=== PATIENT | male | born 1940 | race Caucasian/White ===

== ENCOUNTER 2017-03-28 04:15 | Inpatient (IN) | payer MEDICARE ==
[2017-03-28 03:55] VITALS: O2SAT 0
[~2017-03-28 04:15] MED LIST: AMLO10TA2 PO; ASPI325T PO; BACT800T5 PO; FLUO10TA PO; LANTUS2P SQ; LISI-519 PO; MELA5TAB15 PO; METO25TA3 PO; NOVOLOGP2 SQ; RENACAP2 PO; SENN8.6T88 PO; SEVEL800 PO; TORS100T2 PO; ULOR40TA PO; ZOCO40TA PO
[2017-03-28 04:23] LABS: BLOOD GAS BASE EXCESS -12.9 mmol/L (-2-2); BLOOD GAS CARBOXYHEMOGLOBIN 0.3 % (0-4); BLOOD GAS HCO3 15 mmol/L (22-26); BLOOD GAS METHEMOGLOBIN 1.2 % (0-2); BLOOD GAS O2 HGB SATURATION 97 % (90-100); BLOOD GAS OXYGEN CONTENT 14.4 Vol % (12.0-20.0); BLOOD GAS PCO2 49 mmHg (38-42); BLOOD GAS PO2 211 mmHg (61-120); BLOOD GAS TOTAL HGB 10.2 G/DL (12.0-16.0); TEMP CORR TO 98.6
[2017-03-28 04:24] LABS: DRAW SITE RT BRACHIAL; FIO2 100 %; LITER FLOW 15 L/M; NUMBER OF ARTERIAL PUNCTURES 1; OXYGEN DEVICE AMBU; STAT YES; ULNAR PULSE PRESENT
[2017-03-28] MEDS ORDERED: SODIUM CHLOR 0.9% 1000 ML INJ 1,000 ML IV SCH (04:40)
[2017-03-28] MEDS ORDERED: MAGNESIUM HYDROXIDE SUSP 30 ML CUP PO PRN (04:45)
[2017-03-28] MEDS ORDERED: LACTULOSE SYRUP 20 GM/30 ML CUP PO PRN (04:45)
[2017-03-28] MEDS ORDERED: RESP: ALBUTEROL 2.5 MG/IPRATROPIUM 0.5 MG NEB (PRN) INH (04:45)
[2017-03-28] MEDS ORDERED: ACETAMINOPHEN 325 MG TAB PO PRN (04:45)
[2017-03-28] MEDS ORDERED: CHLORHEXIDINE GLUCONATE 2 % 1 PACK (2 CLOTHS) TOP PRN (04:45)
[2017-03-28] MEDS ORDERED: MISCELLANEOUS NURSING INFORMATION XX SCH (04:45)
[2017-03-28] MEDS ORDERED: SENNOSIDES 8.6 MG TAB PO PRN (04:45)
[2017-03-28] MEDS ORDERED: ONDANSETRON HCL 4 MG/2 ML VIAL IV PRN (04:45)
[2017-03-28] MEDS ORDERED: BISACODYL 10 MG SUPP RECTAL PRN (04:45)
[2017-03-28] MEDS ORDERED: SODIUM BICARBONATE 8.4% INJ 50 MEQ/50 ML SYR IV ONE (04:59)
[2017-03-28] MEDS ORDERED: EPINEPHrine HCL (1:10,000) 1 MG/10 ML SYRINGE IV ONE (04:59)
[2017-03-28] MEDS ORDERED: HEPARIN SODIUM - SQ 10,000 UNITS/ML VIAL SQ SCH (05:00)
[2017-03-28 05:06] LABS: APTT (PATIENT) 28.9 SEC (24.3-30.1); AUTOMATED NEUTROPHIL # 20.2 TH/MM3 (1.8-7.7); BASOPHIL # 0.1 TH/MM3 (0-0.2); BASOPHIL % 0.2 % (0.0-2.0); EOSINOPHIL # 0.1 TH/MM3 (0-0.4); EOSINOPHIL % 0.3 % (0.0-4.0); HEMATOCRIT 33.6 % (39.0-51.0); INTERNATIONAL NORMALIZED RATIO 1.2 RATIO; LYMPH % 16.8 % (9.0-44.0); LYMPHOCYTE # 4.3 TH/MM3 (1.0-4.8); MEAN CELL VOLUME 95.4 FL (80.0-100.0); MEAN CORPUSCULAR HEMOGLOBIN 28.6 PG (27.0-34.0); MONO % 2.6 % (0.0-8.0); NEUT % 80.1 % (16.0-70.0); PLATELET COUNT 256 TH/MM3 (150-450); PROTHROMBIN TIME - PATIENT 12.8 SEC (9.8-11.6); RED BLOOD COUNT 3.52 MIL/MM3 (4.50-5.90); RED CELL DISTRIBUTION WIDTH 15.3 % (11.6-17.2); WHITE BLOOD COUNT 25.3 TH/MM3 (4.0-11.0)
--- NOTE | 2017-03-28 05:09 | HHI.HP ---
HPI Service Critical Care Medicine Primary Care Physician No Primary Care Physician Admission Diagnosis Cardiac Arrest Diagnosis: Chief Complaint: Cardiac Arrest Travel History International Travel<30 Days: No Contact w/Intl Traveler <30 Da: No Traveled to Known Affected Are: No History of Present Illness This is a 76 year old male with past medical history of CVA, HTN, HLD, ESRD HD failed transplant, cdiff with megacolon, malnutrition, DM and newly legally blind post CVA. Patient evaluated sitting in wheelchair with at bedside. Patient only able to provide limited information, noted to be drowsy only able to answer yes or no questions therefore information gathered from patient, and reviewed of prior charting. Patient was found at dialysis unresponsive with left side weakness. He was last seen normal at 0630 that morning 03/18/17. He was presented to [facility]. He was evaluated by Dr. Reeder via telemedicine and transferred to [place]. At [place] his NIHSS was 7 with right gaze deviation, he was moving all extremities against gravity, but could not speak as he was intubated. MRI (03/19/17)- showed bilateral cerebellar, occipital, hippocampal infarcts with cerebellar L>R, Occipital R>L, nonhemorrhagic infarcts infarcts are comparable with posterior circulation thrombolic embolic disease. Bilateral hippocampal acute infarcts, tiny right anterior thalamic and right periaqueductal midbrain acute infarcts were also depicted. Lateral right temporal parietal meningioma CT head 03/21/2017 showed expected interval evolution of the previously demonstrated multifocal acute infarctions within the posterior circulation, including bilateral occipital and cerebral infarcts. Infarcts within the medial aspect of the temporal lobes have also progressed. Echo done shows ef 75%. No vegetations, EEG negative for seizures and keppra stopped on 03/19/17 He was started on his home dose nifedipine, statin. He was seen by neurosurgery Dr. Pizarro and no surgical intervention was needed. Cardiology consulted - Dr. Mar for SVT ON hd 03/21 also found to have 1st degree av block and 13 beat run of vtach. K, phos, mag were adequate. Recommended low dose metoprolol. They did mention hemorrhagic conversion of cva , but I do not see CT report confirming. CT 03/21 read as expected evolution. Recommended no anticoagulation for 2 weeks post cva about 04/01/17. Patient has been admitted to [facility] for comprehensive rehabilitation evaluation and treatment 03/25/18. We have been consulted to assist in management post stroke. Patient appears to be drowsy but in no acute distress. Patient denies shortness of breath chest pain nausea vomiting diarrhea constipation fevers or chills. Patient was found in his room at [facility] on the floor by the bed without a pulse. CPR started and initial rhythm asystole. Full ACLS started. Perfusing rhythm restored briefly and patient transported to [facility]. He developed asystole again in [facility] and code continued. Unable to restore a perfusing rhythm for longer than 5 minutes despite aggressive medical support. See code sheet. Pronounced of cardiac standstill at 0500 hours after 50 minutes of ACLS protocol cpr. Review of Systems ROS Unable to obtain. Obtunded. Past Family Social History Allergies: Coded Allergies: acetaminophen (Verified Allergy, Intermediate, 03/25/17) Past Medical History ROS - General Review of Systems ROS Limitations: Poor Historian PFS Past Family Social History Allergies: Coded Allergies: acetaminophen (Verified Allergy, Intermediate, 03/25/17) Past Medical History HTN, HLD, ESRD HD failed transplant, cdiff with megacolon, malnutrition, DM and newly legally blind post CVA 03/18/17 Past Surgical History Cholecystomy, bilateral nephrectomy and failed renal transplant, incisional hernia repair Reported Medications Torsemide 100 Mg Tab 100 Mg PO DAILY Bactrim DS (Sulfamethoxazole-Trimethoprim) 800-160 Mg Tab 1 Tab PO BID Zocor (Simvastatin) 40 Mg Tab 40 Mg PO HS Renvela (Sevelamer Carbonate) 800 Mg Tab 1,600 Mg PO TIDAC Renal Vitamin (B-Complex W/ C & Folic Acid) 1 Cap 1 Cap PO DAILY If on dialysis, take after treatment. Metoprolol Tartrate 25 Mg Tab 25 Mg PO BID Melatonin 5 Mg Tab 6 Mg PO HS Lisinopril 5 Mg Tab 5 Mg PO DAILY Lantus Inj (Insulin Glargine) 1,000 Unit/10 Ml Vial 28 Units SQ DAILY Novolog Inj (Insulin Aspart) 1,000 Unit/10 Ml Vial 1 Units SQ ACHS SLIDING SCALE Uloric (Febuxostat) 40 Mg Tab 1 Tab PO DAILY Senna-Docusate Sodium Tablet (Sennosides/Docusate Sodium) 1 Each Tablet 1 Cap PO DAILY PRN Aspirin 325 Mg Tab 325 Mg PO HS Amlodipine (Amlodipine Besylate) 10 Mg Tab 10 Mg PO DAILY Fluoxetine (Fluoxetine HCl) 10 Mg Tab 10 Mg PO DAILY Physical Exam Physical Exam P 43, SBP 00/00, R 16 on vent, Sats 78% Head: Atraumatic. Neck: Orally intubated. Lungs: Diffuse rhonchi, mobile secretions. Heart: Irreg Irreg Abdomen: Mildly distended, quiet. Extremities: Mottled Neuro: No reflexes, no gag, no cough. Pupils 2 mm, unresponsive. No spontaneous respirations. Laboratory Laboratory Tests Test 03/28/17 04:15 Blood Gas Puncture Site RT BRACHIAL Blood Gas Patient Temperature 98.6 Blood Gas HCO3 15 Blood Gas Base Excess -12.9 Blood Gas Oxygen Saturation 97 Arterial Blood pH 7.11 Arterial Blood Partial 49 Pressure CO2 Arterial Blood Partial 211 Pressure O2 Arterial Blood Oxygen Content 14.4 Arterial Blood 0.3 Carboxyhemoglobin Arterial Blood Methemoglobin 1.2 Blood Gas Hemoglobin 10.2 Oxygen Delivery Device AMBU Blood Gas Liter Flow 15 Blood Gas Inspired Oxygen 100 Date/Time Procedure Status Source Growth 03/28/17 04:30 Aerobic Blood Culture Received Blood Peripheral Pending 03/28/17 04:30 Anaerobic Blood Culture Received Blood Peripheral Pending Imaging CXR: ET tube good position. Ornelas clear. Assessment and Plan Assessment and Plan Assessment: 1. Cardiac arrest. 2. Respiratory Failure. 3. Metabolic Acidosis. 4. ESRD. 5. S/P CVA Plan: Patient has developed asystole and was unable to be resuscitated. Pronounced at 0500 hours by Romaine Lyle M.D. after about 50 minutes of ACLS protocol. notified in IMC. Shakeel Lyle MD Mar 28, 2017 05:09
--- NOTE | 2017-03-28 05:10 | DEATH SUM ---
Summary Demographics Date Pronounced : Mar 28, 2017 Time Of : 05:00 Preliminary Cause of : Cardiac arrest Shakeel Lyle MD Mar 28, 2017 05:10
[2017-03-28 05:11] LABS: ALKALINE PHOSPHATASE 104 U/L (45-117); ALT (GPT) 199 U/L (12-78); ANION GAP 32 MEQ/L (5-15); AST (GOT) 244 U/L (15-37); BICARBONATE 20.3 MEQ/L (21.0-32.0); BLOOD UREA NITROGEN 61 MG/DL (7-18); CHLORIDE 93 MEQ/L (98-107); GLOMERULAR FILTRATION RATE 9 ML/MIN (>89); POTASSIUM 3.6 MEQ/L (3.5-5.1); SODIUM (NA) 145 MEQ/L (136-145); TOTAL BILIRUBIN ADULT 0.2 MG/DL (0.2-1.0)
--- NOTE | 2017-03-28 05:13 | HHI.DS ---
Discharge Summary Admission Date Mar 28, 2017 at 04:15 Discharge Date: Mar 28, 2017 Admitting Diagnosis Cardiac Arrest Procedures Orotracheal intubation. CPR. Brief History This is a 76 year old male with past medical history of CVA, HTN, HLD, ESRD HD failed transplant, cdiff with megacolon, malnutrition, DM and newly legally blind post CVA. Patient evaluated sitting in wheelchair with at bedside. Patient only able to provide limited information, noted to be drowsy only able to answer yes or no questions therefore information gathered from patient, and reviewed of prior charting. Patient was found at dialysis unresponsive with left side weakness. He was last seen normal at 0630 that morning 03/18/17. He was presented to [facility]. He was evaluated by Dr. Reeder via telemedicine and transferred to [place]. At [place] his NIHSS was 7 with right gaze deviation, he was moving all extremities against gravity, but could not speak as he was intubated. MRI (03/19/17)- showed bilateral cerebellar, occipital, hippocampal infarcts with cerebellar L>R, Occipital R>L, nonhemorrhagic infarcts infarcts are comparable with posterior circulation thrombolic embolic disease. Bilateral hippocampal acute infarcts, tiny right anterior thalamic and right periaqueductal midbrain acute infarcts were also depicted. Lateral right temporal parietal meningioma CT head 03/21/2017 showed expected interval evolution of the previously demonstrated multifocal acute infarctions within the posterior circulation, including bilateral occipital and cerebral infarcts. Infarcts within the medial aspect of the temporal lobes have also progressed. Echo done shows ef 75%. No vegetations, EEG negative for seizures and keppra stopped on 03/19/17 He was started on his home dose nifedipine, statin. He was seen by neurosurgery Dr. Pizarro and no surgical intervention was needed. Cardiology consulted - Dr. Mar for SVT ON hd 03/21 also found to have 1st degree av block and 13 beat run of vtach. K, phos, mag were adequate. Recommended low dose metoprolol. They did mention hemorrhagic conversion of cva , but I do not see CT report confirming. CT 03/21 read as expected evolution. Recommended no anticoagulation for 2 weeks post cva about 04/01/17. Patient has been admitted to [facility] for comprehensive rehabilitation evaluation and treatment 03/25/18. We have been consulted to assist in management post stroke. Patient appears to be drowsy but in no acute distress. Patient denies shortness of breath chest pain nausea vomiting diarrhea constipation fevers or chills. [facility] on [facility] floor by the bed without a pulse. CPR started and initial rhythm asystole. Full ACLS started. Perfusing rhythm restored briefly and patient transported to [facility]. He developed asystole again in [facility] and code continued. Unable to restore a perfusing rhythm for longer than 5 minutes despite aggressive medical support. See code sheet. Pronounced of cardiac standstill at 0500 hours after 50 minutes of ACLS protocol cpr. Significant Findings Laboratory Tests Test 03/28/17 03/28/17 04:15 04:30 Blood Gas HCO3 15 mmol/L (22-26) Blood Gas Base Excess -12.9 mmol/L (-2-2) Arterial Blood pH 7.11 (7.380-7.420) Arterial Blood Partial 49 mmHg (38-42) Pressure CO2 Arterial Blood Partial 211 mmHg Pressure O2 (61-120) Blood Gas Hemoglobin 10.2 G/DL (12.0-16.0) Prothrombin Time 12.8 SEC (9.8-11.6) Imaging CXR: ET tube in good position, lung hernandez well expanded. PE at Discharge . Hospital Course This is a 76 year old male with past medical history of CVA, HTN, HLD, ESRD HD failed transplant, cdiff with megacolon, malnutrition, DM and newly legally blind post CVA. Patient evaluated sitting in wheelchair with at bedside. Patient only able to provide limited information, noted to be drowsy only able to answer yes or no questions therefore information gathered from patient, and reviewed of prior charting. Patient was found at dialysis unresponsive with left side weakness. He was last seen normal at 0630 that morning 03/18/17. He was presented to [facility]. He was evaluated by Dr. Reeder via telemedicine and transferred to [place]. At [place] his NIHSS was 7 with right gaze deviation, he was moving all extremities against gravity, but could not speak as he was intubated. MRI (03/19/17)- showed bilateral cerebellar, occipital, hippocampal infarcts with cerebellar L>R, Occipital R>L, nonhemorrhagic infarcts infarcts are comparable with posterior circulation thrombolic embolic disease. Bilateral hippocampal acute infarcts, tiny right anterior thalamic and right periaqueductal midbrain acute infarcts were also depicted. Lateral right temporal parietal meningioma CT head 03/21/2017 showed expected interval evolution of the previously demonstrated multifocal acute infarctions within the posterior circulation, including bilateral occipital and cerebral infarcts. Infarcts within the medial aspect of the temporal lobes have also progressed. Echo done shows ef 75%. No vegetations, EEG negative for seizures and keppra stopped on 03/19/17 He was started on his home dose nifedipine, statin. He was seen by neurosurgery Dr. Pizarro and no surgical intervention was needed. Cardiology consulted - Dr. Mar for SVT ON hd 03/21 also found to have 1st degree av block and 13 beat run of vtach. K, phos, mag were adequate. Recommended low dose metoprolol. They did mention hemorrhagic conversion of cva , but I do not see CT report confirming. CT 03/21 read as expected evolution. Recommended no anticoagulation for 2 weeks post cva about 04/01/17. Patient has been admitted to [facility] for comprehensive rehabilitation evaluation and treatment 03/25/18. We have been consulted to assist in management post stroke. Patient appears to be drowsy but in no acute distress. Patient denies shortness of breath chest pain nausea vomiting diarrhea constipation fevers or chills. Patient was found in his room at [facility] on the floor by the bed without a pulse. CPR started and initial rhythm asystole. Full ACLS started. Perfusing rhythm restored briefly and patient transported to [facility]. He developed asystole again in IM and code continued. Unable to restore a perfusing rhythm for longer than 5 minutes despite aggressive medical support. See code sheet. Pronounced of cardiac standstill at 0500 hours after 50 minutes of ACLS protocol cpr. Pt Condition on Discharge: Deteriorating Shakeel Lyle MD Mar 28, 2017 05:13
[2017-03-28 05:19] LABS: HEMO FLAGS AUTO DIFF
[2017-03-28 05:32] LABS: BANDS 1 % (0-6); CORRECTED NUCLEATED RBC 3 /100 WBC (0-0); MYELOCYTES 2 % (0-0); NEUTROPHIL # MANUAL DIFF 21.3 TH/MM3 (1.8-7.7); PLATELET ESTIMATE SMEAR NORMAL (NORMAL); PLATELET MORPHOLOGY NORMAL (NORMAL); POLYS (SEG NEUTROPHILS) 81 % (16-70); SCAN/DIFF FINAL DIFF MANUAL; WBC DIFF SAMPLE 100
[2017-03-28 06:37] LABS: LACTIC ACID GHOST NOT REPORTABLE
[2017-03-28] MEDS ORDERED: PANTOPRAZOLE SODIUM 40 MG VIAL IV SCH (09:00)
[2017-03-28] MEDS ORDERED: DOCUSATE SODIUM 50 MG/SENNA 8.6 MG TAB PO SCH (09:00)
[2017-03-29] MEDS ORDERED: CHLORHEXIDINE GLUCONATE 2 % 1 PACK (2 CLOTHS) TOP SCH (04:00)
[2017-04-03 21:45] LABS: CRITICAL VALUE YES
== END 2017-03-28 05:00 | disposition expired | DRG 64 ==
LOC: HIME 04:15
PROVIDERS: ADMIT Surgery Surgical Critical Care; ATTEND Surgery Surgical Critical Care
PROC: 0BH17EZ Insertion of Endotracheal Airway into Trachea, Via Natural or Artificial Opening (ICD-10-PCS; principal; 2017-03-28)
PROC: 5A12012 Performance of Cardiac Output, Single, Manual (ICD-10-PCS; 2017-03-28)
DX: I63.9 Cerebral infarction, unspecified (principal); N18.6 End stage renal disease; J96.90 Respiratory failure, unspecified, unspecified whether with hypoxia or hypercapnia; I47.2 Ventricular tachycardia; E87.2 Acidosis; E46 Unspecified protein-calorie malnutrition; K59.39 Other megacolon; I12.0 Hypertensive chronic kidney disease with stage 5 chronic kidney disease or end stage renal disease; I47.1 Supraventricular tachycardia; E11.22 Type 2 diabetes mellitus with diabetic chronic kidney disease; E78.5 Hyperlipidemia, unspecified; H54.8 Legal blindness, as defined in USA; I44.0 Atrioventricular block, first degree; I46.9 Cardiac arrest, cause unspecified; Z86.73 Personal history of transient ischemic attack (TIA), and cerebral infarction without residual deficits; D32.9 Benign neoplasm of meninges, unspecified
CPT/HCPCS: 36600; 80053; 82805; 83605; 85007; 85027; 85610; 85730; 87040; 87205; 92950; 94002; J0171